=== PATIENT | female | born 1995 ===

== ENCOUNTER 2017-05-11 16:17 | Emergency (ER) | payer MEDICAID ==
[2017-05-11 16:34] VITALS: RESP 18; TEMP 98.8; O2SAT 98; BMI 25.6
--- NOTE | 2017-05-11 16:48 | ED PDOC ---
Arrival/HPI - General Chief Complaint: Abdominal Pain Time Seen by Provider: 05/11/17 16:37 Historian: Patient - History of Present Illness Narrative History of Present Illness (Text): 05/11/17 16:45 21yo female present with complaint of intermittent right pelvic pain. She notes that she is currently 23weeks . States she first felt the pain yesterday and then this morning. she denies current pain. States she came to ED because her she spoke with her OB at [facility] and was told to go see OB. She denies nausea, vomiting, diarrhea, urinary symptoms, vaginal bleeding, any other complaint. Past Medical History - Provider Review Nursing Documentation Reviewed: Yes - Travel History If Yes, travel location?: [place] - Psychiatric Hx Substance Use: No Family/Social History - Physician Review Nursing Documentation Reviewed: Yes Family/Social History: Unknown Family HX Smoking Status: Never Smoked Hx Alcohol Use: No Hx Substance Use: No Allergies/Home Meds Allergies/Adverse Reactions: Allergies No Known Allergies Allergy (Verified 05/11/17 16:34) Home Medications: Home Meds Medication Instructions Recorded Confirmed Prenatl Vit6/Iron/FA/B12/Ca/D3 1 each PO DAILY 05/11/17 05/11/17 [Mteryti Combo Pack] Review of Systems - Physician Review All systems were reviewed & negative as marked: Yes - Review of Systems Constitutional: Normal Eyes: Normal ENT: Normal Respiratory: Normal Cardiovascular: Normal Gastrointestinal: Abdominal Pain. absent: Constipation, Diarrhea, Nausea, Vomiting, Hematochezia, Hematemesis Genitourinary Female: Normal Musculoskeletal: Normal Skin: Normal Neurological: Normal Endocrine: Normal Hemo/Lymphatic: Normal Psychiatric: Normal Physical Exam Vital Signs Reviewed: Yes Vital Signs Temp Pulse Resp BP Pulse Ox 05/11/17 18:10 89 18 116/68 98 05/11/17 16:27 98.8 F 92 H 18 114/65 98 Temperature: Afebrile Blood Pressure: Normal Pulse: Regular Respiratory Rate: Normal Appearance: Positive for: Well-Appearing, Non-Toxic, Comfortable Pain Distress: None Mental Status: Positive for: Alert and Oriented X 3 - Systems Exam Head: Present: Atraumatic, Normocephalic Pupils: Present: PERRL Extroacular Muscles: Present: EOMI Conjunctiva: Present: Normal Mouth: Present: Moist Mucous Membranes Neck: Present: Normal Range of Motion Respiratory/Chest: Present: Clear to Auscultation, Good Air Exchange. No: Respiratory Distress, Accessory Muscle Use Cardiovascular: Present: Regular Rate and Rhythm, Normal S1, S2. No: Murmurs Abdomen: Present: Distention (Gravid abdomen), Normal Bowel Sounds. No: Tenderness, Peritoneal Signs, Rebound, Guarding, McBurney's Point Tender, Rovsing's Sign Present Back: Present: Normal Inspection Upper Extremity: Present: Normal Inspection. No: Cyanosis, Edema Lower Extremity: Present: Normal Inspection. No: Edema Neurological: Present: GCS=15, CN II-XII Intact, Speech Normal Skin: Present: Warm, Dry, Normal Color. No: Rashes Psychiatric: Present: Alert, Oriented x 3, Normal Insight, Normal Concentration Medical Decision Making ED Course and Treatment: 05/12/17 00:59 PT in ED for stated history. She denied pain and vaginal bleeding in ED. UA was negative. US Impression: Single living fetus with a composite sonographic age of 24 weeks 1 day. Estimated heart rate 151.2 beats per min. Result was DW the pt. she was advised to f/u with her OB. TRT ED for any new or worsening symptoms - Lab Interpretations Lab Results: Lab Results 05/11/17 16:30: Urine Color Yellow, Urine Appearance Clear, Urine pH 6.5, Ur Specific Rozet 1.020, Urine Protein Negative, Urine Glucose (UA) 100 H, Urine Ketones Negative, Urine Blood Negative, Urine Nitrate Negative, Urine Bilirubin Negative, Urine Urobilinogen 0.2, Ur Leukocyte Esterase Negative - RAD Interpretation Radiology Orders: 05/11/17 16:42 AGE [US] Stat Disposition/Present on Arrival - Present on Arrival Any Indicators Present on Arrival: No History of DVT/PE: No History of Uncontrolled Diabetes: No Urinary Catheter: No History of Decub. Ulcer: No History Surgical Site Infection Following: None - Disposition Have Diagnosis and Disposition been Completed?: Yes Diagnosis: Abdominal pain, Disposition: HOME/ ROUTINE Disposition Time: 18:05 Patient Plan: Discharge Condition: STABLE Discharge Instructions (ExitCare): (ED), Abdominal Pain (ED) Additional Instructions: Follow up with your OB Return to ED for any new or worsening symptoms Referrals: Meera Curtis, [Primary Care Provider] - Follow up with primary [facility] [Outside] - Follow up with primary
[2017-05-11 17:11] LABS: PH,URINE 6.5 (4.7-8.0); URINE BILIRUBIN NEGATIVE (NEGATIVE); URINE BLOOD NEGATIVE (NEGATIVE); URINE GLUCOSE (UA) 100 mg/dL (NEGATIVE); URINE KETONE NEGATIVE (NEGATIVE); URINE LEUKOCYTE ESTERASE NEGATIVE Leu/uL (NEGATIVE); URINE PROTEIN NEGATIVE mg/dL (<30 mg/dL); URINE UROBILINOGEN 0.2 E.U./dL (<1 E.U./dL)
[2017-05-11 17:12] LABS: URINE APPEARANCE CLEAR (CLEAR); URINE COLOR YELLOW (YELLOW)
--- NOTE | 2017-05-11 17:56 | US ---
age ultrasound Indication: /abdominal pain Comparison: None available Technique: Real-time ultrasound was performed through the pelvis. Findings: There is a single living fetus in cephalic presentation. Amniotic fluid volume is within normal limits. Anterior placenta. The right ovary is not visualized. The left ovary measures approximately 3.5 x 1.9 x 1.9 cm and demonstrates blood flow. There are no adnexal masses or cysts evident. Cervix length measures approximately 3.6 cm. Measurements and calculations: Fetus has a composite sonographic age of 24 weeks 1 day. This calculation is based on the biparietal diameter, head circumference, abdominal circumference, and femur length. Estimated heart rate 151.2 beats per min. Impression: Single living fetus with a composite sonographic age of 24 weeks 1 day. Estimated heart rate 151.2 beats per min. The study was performed for emergent evaluation, and the whole anatomic survey of the fetus was not performed. This should be performed on an outpatient elective basis as clinically warranted.
[2017-05-11 18:22] VITALS: BP 116/68; PULSE 89
== END 2017-05-11 18:39 | disposition home or self-care (01) ==
LOC: ED 16:17
DX: O26.92 Pregnancy related conditions, unspecified, second trimester (principal); Z3A.24 24 weeks gestation of pregnancy; R10.9 Unspecified abdominal pain

== ENCOUNTER 2018-08-25 11:26 | Emergency (ER) | payer MEDICAID, OTHER ==
[2018-08-25 11:27] VITALS: BMI 25.6
[2018-08-25 11:34] VITALS: BP 134/81; PULSE 68; RESP 16; TEMP 98.2; O2SAT 97
[2018-08-25] MEDS ORDERED: DiphenhydrAMINE 50 mg/ml Inj IVP STA (11:42)
[2018-08-25] MEDS ORDERED: Sodium Chloride 0.9% 1,000 ML IV STA (11:42)
--- NOTE | 2018-08-25 12:00 | ED PDOC ---
Arrival/HPI - General Chief Complaint: Headache Time Seen by Provider: 08/25/18 11:34 Historian: Patient - History of Present Illness Narrative History of Present Illness (Text): 08/25/18 11:45 22 year old female, with no significant past medical history, presents to the Emergency department complaining of right sided frontal headache radiating to the posterior aspect of her head since 4pm yesterday. Patient states symptoms ar e similar to her past episodes of headache, which resolved spontaneously. Patient informs frequent episodes of headache in the past without any clinical diagnosis. Patient reports exacerbation of symptoms from bright light and loud noises. Patient denies any other associated somatic complaints. Patient denies any dizziness, numbness/tingling, auditory or hallucinations or any other acute neurological deficits. Patient denies any fever, chills, nausea, vomiting, diarrhea, abdominal pain, chest pain, shortness of breath, neck pain, back pain or any other complaints. Patient reports possibility of . PMD: NO PMD Time/Duration: 4-6 hours Symptom Onset: Gradual Symptom Course: Unchanged Quality: Aching Activities at Onset: Light Context: Home Past Medical History - Provider Review Nursing Documentation Reviewed: Yes - Cardiac Hx Cardiac Disorders: No - Pulmonary Hx Respiratory Disorders: No - Neurological Hx Neurological Disorder: Yes Hx Headaches: Yes Hx Syncope: Yes - HEENT Hx HEENT Disorder: No - Renal Hx Renal Disorder: No - Endocrine/Metabolic Hx Endocrine Disorders: No - Hematological/Oncological Hx Blood Disorders: No - Integumentary Hx Dermatological Disorder: No - Musculoskeletal/Rheumatological Hx Musculoskeletal Disorders: No - Gastrointestinal Hx Gastrointestinal Disorders: No - Genitourinary/Gynecological Hx Genitourinary Disorders: No - Psychiatric Hx Psychophysiologic Disorder: No Hx Substance Use: No Family/Social History - Physician Review Nursing Documentation Reviewed: Yes Family/Social History: No Known Family HX Smoking Status: Never Smoked Hx Alcohol Use: No Hx Substance Use: No Allergies/Home Meds Allergies/Adverse Reactions: Allergies No Known Allergies Allergy (Verified 08/25/18 11:28) Review of Systems - Physician Review All systems were reviewed & negative as marked: Yes - Review of Systems Constitutional: absent: Fevers Respiratory: absent: SOB Cardiovascular: absent: Chest Pain Gastrointestinal: absent: Abdominal Pain, Diarrhea, Nausea, Vomiting Musculoskeletal: absent: Back Pain, Neck Pain Neurological: Headache. absent: Dizziness Physical Exam Vital Signs Reviewed: Yes Vital Signs Temp Pulse Resp BP Pulse Ox 08/25/18 11:29 98.2 F 68 16 134/81 97 Temperature: Afebrile Blood Pressure: Normal Pulse: Regular Respiratory Rate: Normal Appearance: Positive for: Well-Appearing, Non-Toxic, Comfortable Pain Distress: None Mental Status: Positive for: Alert and Oriented X 3 - Systems Exam Head: Present: Atraumatic, Normocephalic Pupils: Present: PERRL Extroacular Muscles: Present: EOMI Conjunctiva: Present: Normal Mouth: Present: Moist Mucous Membranes Neck: Present: Normal Range of Motion Respiratory/Chest: Present: Clear to Auscultation, Good Air Exchange. No: Respiratory Distress, Accessory Muscle Use Cardiovascular: Present: Regular Rate and Rhythm, Normal S1, S2. No: Murmurs Abdomen: No: Tenderness, Distention, Peritoneal Signs Back: Present: Normal Inspection Upper Extremity: Present: Normal Inspection. No: Cyanosis, Edema Lower Extremity: Present: Normal Inspection. No: Edema Neurological: Present: GCS=15, CN II-XII Intact, Speech Normal Skin: Present: Warm, Dry, Normal Color. No: Rashes Psychiatric: Present: Alert, Oriented x 3, Normal Insight, Normal Concentration Medical Decision Making ED Course and Treatment: 08/25/18 11:55 Impression: 22 year old female presents to the Emergency department complaining of headache. states previous neg imaging, declines repeat imaging Differential Diagnosis included but are not limited to: Migraine Plan: -- Labs -- IV fluids -- Reglan -- Benadryl -- Urinalysis -- Reassess and disposition Prior Visits: Notes and results from previous visits were reviewed. Progress Notes: 08/25/18 13:42 pt states pain improved. asking for dc neuro intact steady gait. advise outpt fu. - Medication Orders Current Medication Orders: Sodium Chloride (Sodium Chloride 0.9%) 1,000 mls @ 999 mls/hr IV .Q1H1M STA Stop: 08/25/18 12:42 Discontinued Medications Diphenhydramine HCl (Benadryl) 25 mg IVP STAT STA Stop: 08/25/18 11:43 Metoclopramide HCl (Reglan) 10 mg IVP STAT STA Stop: 08/25/18 11:43 - Scribe Statement The provider has reviewed the documentation as recorded by the Scribe Shaun Ferrerm. All medical record entries made by the Scribe were at my direction and personally dictated by me. I have reviewed the chart and agree that the record accurately reflects my personal performance of the history, physical exam, medical decision making, and the department course for this patient. I have also personally directed, reviewed, and agree with the discharge instructions and disposition. Disposition/Present on Arrival - Present on Arrival Any Indicators Present on Arrival: No History of DVT/PE: No History of Uncontrolled Diabetes: No Urinary Catheter: No History of Decub. Ulcer: No History Surgical Site Infection Following: None - Disposition Have Diagnosis and Disposition been Completed?: Yes Diagnosis: Headache Disposition: HOME/ ROUTINE Disposition Time: 11:30 Patient Problems: Current Active Problems Problem Status Onset Headache Acute Condition: STABLE Discharge Instructions (ExitCare): Headache, Adult, Headache, Adult (DC) Additional Instructions: please follow up with your doctor. return to er with worsening symptoms or concerns. please see specialist. Prescriptions: Acetaminophen/Butalbital/Caf [Fioricet] 1 tab PO Q8 PRN #20 tab PRN Reason: Headache Referrals: Bryant Cordero MD [Staff Provider] - Follow up with primary Forms: [employer] (Scottish)
[2018-08-25 12:05] LABS: URINE BILIRUBIN NEGATIVE (NEGATIVE); URINE BLOOD NEGATIVE (NEGATIVE); URINE GLUCOSE (UA) NEGATIVE (NEGATIVE); URINE LEUKOCYTE ESTERASE NEGATIVE Leu/uL (NEGATIVE); URINE PROTEIN NEGATIVE mg/dL (<30 mg/dL)
[2018-08-25 12:07] LABS: URINE APPEARANCE CLEAR (CLEAR); URINE COLOR YELLOW (YELLOW)
[2018-08-25 12:08] LABS: HCG,QUALITATIVE URINE NEGATIVE (NEGATIVE)
[2018-08-25 12:47] LABS: INR 1.13; PARTIAL THROMBOPLASTIN TIME 29.2 Seconds (25.1-36.5)
[2018-08-25 12:53] LABS: ALB/GLOB RATIO 1.2 (1.1-1.8); ALBUMIN 4.3 g/dL (3.0-4.8); ALT/SGPT 20 U/L (7-56); AST/SGOT 26 U/L (14-36); BLOOD UREA NITROGEN 13 mg/dL (7-21); CALCIUM 9.9 mg/dL (8.4-10.5); GFR NON-AFRICAN AMERICAN > 60
[2018-08-25 13:18] LABS: BASO # 0.01 K/mm3 (0.0-2.0); BASO % 0.2 % (0.0-3.0); EOS # 0.1 (0.0-0.7); EOS % 0.9 % (1.5-5.0); GRAN # 3.84 (1.4-6.5); LYMPH # 2.2 (1.2-3.4); LYMPH % 34.1 % (22.0-35.0); MEAN CELL VOLUME 82.2 fl (80.0-105.0); MEAN CORPUSCULAR HEMOGLOBIN 28.2 pg (25.0-35.0); MEAN CORPUSCULAR HGB CONC 34.3 g/dl (31.0-37.0); MEAN PLATELET VOLUME 10.4 fl (7.0-11.0); MONO # 0.3 (0.1-0.6); MONO % 4.8 % (1.0-6.0); RBC 4.61 10^6/uL (3.5-6.1); RED CELL DISTRIBUTION WIDTH 12.7 % (11.5-14.5); WHITE BLOOD COUNT 6.4 10^3/ul (4.5-11.0)
== END 2018-08-25 13:45 | disposition home or self-care (01) ==
LOC: ED 11:26
DX: R51 Headache (principal)
CPT/HCPCS: 80053; 81003; 84702; 84703; 85025; 85610; 85730; 96374; 96375; 99285; J1200; J2765; J7030